=== PATIENT | female | born 1995 | race African-American/Black ===

== ENCOUNTER 2021-03-02 11:05 | Day surgery (SDC) | payer OTHER ==
[2021-03-02 11:47] VITALS: BMI 28.5
[2021-03-02] MEDS ORDERED: hydrALAZINE 20 MG/ML VIAL SLOW IVP PRN (12:35)
[2021-03-02 13:04] LABS: Bilirubin Neg (Negative); Blood, Urine Negative (Negative); Clarity Clear (Clear); Glucose, Urine (Dipstick) Normal (Negative); Ketone, Urine Negative (Negative); Leukocyte Negative (Negative); Nitrite Negative (Negative); Protein, Urine (Dipstick) Negative (Neg-Trace); Urobilinogen Normal mg/dL (Less than 2)
[2021-03-02 13:13] LABS: Bacteria/HPF Rare-Few HPF (None Seen); RBC/HPF None Seen HPF (0-3); Squamous Epithelial 0-3 HPF (0-3); WBC/HPF 0-3 HPF (0-3)
[2021-03-02 13:18] LABS: Amnisure Test No Membranes Rupture (No Rupture)
== END 2021-03-02 13:09 | disposition home or self-care (01) ==
LOC: CSHLD/OP 11:05
PROVIDERS: ATTEND Obstetrics & Gynecology
DX: O99.891 Other specified diseases and conditions complicating pregnancy (principal); N89.8 Other specified noninflammatory disorders of vagina; R19.7 Diarrhea, unspecified; Z3A.23 23 weeks gestation of pregnancy
CPT/HCPCS: 81001; 84112; 87480; 87510; 87660; 99283